=== PATIENT | male | born 1950 | race Caucasian/White ===

== ENCOUNTER 2021-07-07 16:12 | Emergency (ER) | payer OTHER, SELFPAY ==
--- NOTE | ~2021-07-07 | XR_ITS ---
[XR ribs RT 2V ] INDICATION: Right rib pain after fall TECHNIQUE: Frontal projection of the upper right ribs, frontal projection of the lower right ribs, ob lique projection of all the right ribs. FINDINGS: There are no displaced rib fractures identified. There are no soft tissue abnormality see n. The lungs are clear. Small sclerotic lesion right humeral head, likely bone island. IMPRESSION: 1:No acute displaced rib fractures. Reviewed, dictated and finalized at location A. NG DEMONSTRATOR
--- NOTE | ~2021-07-07 | XR_ITS ---
EXAMINATION: XR wrist RT min 3V DATE: 07/07/2021 17:02 INDICATION: Right wrist pain. Fall. TECHNIQUE: 4 views of right wrist were obtained. COMPARISON: None. FINDINGS: Scapholunate dissociation is noted. There is dorsal tilt of lunate, consistent with dorsal intercalated segmental instability (DISI). No fracture. 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 There is mild osteoarthritis of triscaphe joint and first carpometacarpal joint. IMPRESSION: 1. Scapholunate advanced collapse (SLAC). Reviewed, dictated and finalized at location A. E[employer]
[2021-07-07 16:28] VITALS: BP 147/86; PULSE 91; RESP 16; TEMP 36.4; O2SAT 97
--- NOTE | 2021-07-07 16:54 | ED.FALL ---
HPI - Fall General Chief Complaint: Fall Stated Complaint: fell head injury /right side/wrist pain Time Seen by Provider: 07/07/21 16:45 Source: patient, RN notes reviewed and old records reviewed Mode of arrival: ambulatory Limitations: no limitations History of Present Illness HPI Narrative: 71 year old male presents to 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 Patient has small raised hematoma to the right alfred of his forehead with some abrasions, no LOC, denies any visual disturbances. Dizziness, or nausea. Patient has pain to the right wrist area and also to the right lateral rib area under right axilla.. Patient has few abrasions to the right hand and wrist area.Patient is on daily blood thinner. Patient reports that his tetanus is up to date.Patient has been applying ice to his forehead rates his discomfort as /10 MD complaint: fall Onset (ago): hour(s) (at 1345 today) Fall from: standing Fall witnessed: yes, by bystander Place fall occurred: street Loss of consciousness: none Symptoms prior to fall: none Context: tripped/slipped Associated symptoms (after fall): denies Related Data Home Medications Medication Instructions Recorded Confirmed albuterol sulfate 90 mcg/actuation 1 inhalation INHALATION Q4-6H PRN 03/18/19 07/07/21 breath activated powder inhaler apixaban 5 mg tablet 5 mg PO BID 03/18/19 07/07/21 cholecalciferol (vitamin D3) 125 5,000 unit PO DAILY 03/18/19 07/07/21 mcg (5,000 unit) capsule diltiazem HCl 90 mg 90 mg PO BID 03/18/19 07/07/21 capsule,extended release 12 hr fluticasone furoate 200 1 inhalation INHALATION DAILY 03/18/19 07/07/21 mcg-vilanterol 25 mcg/dose inhalation powder glyburide 5 mg tablet 5 mg PO BID 03/18/19 07/07/21 hydrochlorothiazide 25 mg tablet 25 mg PO DAILY 03/18/19 07/07/21 metformin 500 mg tablet 1,000 mg PO TID tablet 03/18/19 07/07/21 metoprolol succinate 50 mg 50 mg PO BID 03/18/19 07/07/21 tablet,extended release 24 hr Allergies Allergy/AdvReac Type Severity Reaction Status Date / Time MARISELA Inhibitors Allergy Mild Verified 09/27/12 10:50 Penicillins Allergy Unknown Verified 12/07/14 13:55 Review of Systems Review of Systems: CONSTITUTIONAL: Denies fever, chills, or sweats. EYES: Denies visual changes, redness, or discharge. ENT: Denies rhinorrhea, congestion, sore throat, or otalgia. CARDIOVASCULAR: Denies chest pain, palpitations, or edema.discomfort to the lateral rib area under his axilla. RESPIRATORY: Denies cough or dyspnea. GASTROINTESTINAL: Denies abdominal pain, nausea, vomiting, or diarrhea. GENITOURINARY: Denies dysuria or hematuria. SKIN: Denies rash or itching. MUSCULOSKELETAL: Denies back pain, right wrist pain, or myalgia. NEUROLOGIC: Denies headache, numbness, or weakness.hematoma to the right forehead region PSYCHIATRIC: Denies anxiety or depression. All systems reviewed & are unremarkable except as noted in HPI and below PMFSH Past Medical History Medical History Afib COPD (chronic obstructive pulmonary disease) Diabetes Hypertension Surgical History Surgical History H/O shoulder surgery right Family History Family History Sibling Family history of malignant neoplasm Other Family history of cardiovascular disease Social History Social History Smoking status: Former smoker Smoking end date: 05/07/89 Alcohol intake: never Comments At time of signature, agree with nursing past medical, surgical, social and family history. There is no relevant family history pertinent to the presenting complaint Exam Narrative: GENERAL: Well-appearing, well-nourished,
== END 2021-07-07 17:33 | disposition home or self-care (01) ==
PROVIDERS: Emergency Provider Registered Nurse; PCP Student in an Organized Health Care Education/Training Program
DX: S09.90XA Unspecified injury of head, initial encounter (principal); W01.0XXA Fall on same level from slipping, tripping and stumbling without subsequent striking against object, initial encounter; Y99.0 Civilian activity done for income or pay; M19.031 Primary osteoarthritis, right wrist; R07.81 Pleurodynia; Z87.891 Personal history of nicotine dependence; I48.91 Unspecified atrial fibrillation; J44.9 Chronic obstructive pulmonary disease, unspecified; E11.9 Type 2 diabetes mellitus without complications; I10 Essential (primary) hypertension
CPT/HCPCS: 71100; 73110; 99214; G0463

== ENCOUNTER 2021-08-29 12:16 | Emergency (ER) | payer OTHER, SELFPAY ==
--- NOTE | ~2021-08-29 | XR_ITS ---
EXAMINATION: XR chest 2V DATE: 08/29/2021 12:45 INDICATION: Cough and congestion TECHNIQUE: PA and lateral views of the chest were obtained. COMPARISON: Chest radiograph dated 08/03/2021 FINDINGS: Mild streaky opacities at the bilateral lung bases and favor atelectasis over pneumonia. No pleural e ffusion or pneumothorax. The cardiomediastinal silhouette is normal. Mild thoracic spondylosis. IMPRESSION: 1. Mild streaky bibasilar opacities and favor atelectasis over pneumonia. Reviewed, dictated and finalized at location B.
--- NOTE | 2021-08-29 12:25 | ED.URI ---
HPI - URI/Sore Throat General Chief Complaint: Upper Respiratory Infection Stated Complaint: Cough,Congestion Time Seen by Provider: 08/29/21 12:26 Source: patient, RN notes reviewed and old records reviewed Mode of arrival: ambulatory Limitations: no limitations History of Present Illness HPI Narrative: 71-year-old male presents to the [facility] with complaints of cough and congestion for 1 week, worse over the last 2 days. Reports a nonproductive cough. States family was diagnosed with upper respiratory issues. States it was not COVID nor strep. Denies chest pain or abdominal pain. Denies fevers. Reports increased fatigue and generalized body aches. No treatment prior to arrival MD elicited complaint: cough Related Data Home Medications Medication Instructions Recorded Confirmed albuterol sulfate 90 mcg/actuation 1 inhalation INHALATION Q4-6H PRN 03/18/19 08/29/21 breath activated powder inhaler apixaban 5 mg tablet 5 mg PO BID 03/18/19 08/29/21 cholecalciferol (vitamin D3) 125 5,000 unit PO DAILY 03/18/19 08/29/21 mcg (5,000 unit) capsule diltiazem HCl 90 mg 90 mg PO BID 03/18/19 08/29/21 capsule,extended release 12 hr fluticasone furoate 200 1 inhalation INHALATION DAILY 03/18/19 08/29/21 mcg-vilanterol 25 mcg/dose inhalation powder glyburide 5 mg tablet 5 mg PO BID 03/18/19 08/29/21 hydrochlorothiazide 25 mg tablet 25 mg PO DAILY 03/18/19 08/29/21 metformin 500 mg tablet 1,000 mg PO TID tablet 03/18/19 08/29/21 metoprolol succinate 50 mg 50 mg PO BID 03/18/19 08/29/21 tablet,extended release 24 hr Allergies Allergy/AdvReac Type Severity Reaction Status Date / Time MARISELA Inhibitors Allergy Mild Other Verified 08/29/21 12:20 Penicillins Allergy Unknown Other Verified 08/29/21 12:20 Review of Systems Review of Systems: All systems reviewed & are unremarkable except as noted in HPI and below Constitutional: Constitutional: Reports as per HPI, Denies chills, Reports fatigue, Denies fever(s) and Denies headache(s) Eyes: Eyes: Reports no additional eye complaints ENT: Reports as per HPI, Denies vertigo, Denies dizziness, Denies headache(s), Denies nasal congestion and Denies sore throat Cardiovascular: Cardiovascular: Reports no additional cardiovascular complaints, Denies chest pain, Denies syncope, Denies rapid heart rate and Denies dyspnea Respiratory: Respiratory: Reports as per HPI, Reports chest congestion, Reports cough, Denies dyspnea and Denies wheezing Gastrointestinal: Gastrointestinal: Reports no additional gastrointestinal complaints, Denies abdominal pain, Denies diarrhea, Denies nausea and Denies vomiting Musculoskeletal: Musculoskeletal: Reports as per HPI, Reports myalgias and Denies numbness Integumentary/Breasts: Skin/Breast: Reports system reviewed and no additional complaints, except as docu Neurologic: Reports system reviewed and no additional complaints, except as documented, Denies vertigo, Denies dizziness, Denies syncope, Denies headache(s), Denies focal weakness and Denies numbness Psychiatric: Psychiatric: Reports no additional psychiatric complaints Allergic/Immunologic: Allergic/Immunologic: Reports no additional allergic/immunologic complaints and Denies wheezing PMFSH Past Medical History Medical History Afib Asthma COPD (chronic obstructive pulmonary disease) Diabetes Hypertension Surgical History Surgical History H/O shoulder surgery right Family History Family History Sibling Family history of malignant neoplasm Other Family history of cardiovascular disease Social History Social History Smoking status: Former smoker Smoking end date: 05/07/89 Alcohol intake: never Comments At the time of my signature, I reviewed and
[2021-08-29 12:29] VITALS: BP 136/81; PULSE 95; RESP 18; TEMP 36.2; O2SAT 95
[2021-08-29 19:32] LABS: SARS-CoV-2 RNA PCR Negative
== END 2021-08-29 13:12 | disposition home or self-care (01) ==
PROVIDERS: Emergency Provider Nurse Practitioner; PCP Student in an Organized Health Care Education/Training Program
DX: J40 Bronchitis, not specified as acute or chronic (principal); J98.11 Atelectasis; Z20.822 Contact with and (suspected) exposure to COVID-19; Z87.891 Personal history of nicotine dependence; I48.91 Unspecified atrial fibrillation; J44.9 Chronic obstructive pulmonary disease, unspecified; E11.9 Type 2 diabetes mellitus without complications; I10 Essential (primary) hypertension; Z79.84 Long term (current) use of oral hypoglycemic drugs
CPT/HCPCS: 71046; 87804; 99213; C9803; G0463; U0003; U0005

== ENCOUNTER 2024-01-19 18:58 | Emergency (ER) | payer OTHER, SELFPAY ==
[2024-01-19 19:02] VITALS: BP 167/78; PULSE 105; RESP 20; TEMP 37.9; O2SAT 96
--- NOTE | 2024-01-19 19:06 | ED.URI ---
HPI - URI/Sore Throat General Chief Complaint: Upper Respiratory Infection Stated Complaint: Cough Time Seen by Provider: 01/19/24 19:18 Source: patient, RN notes reviewed and old records reviewed Mode of arrival: ambulatory Limitations: no limitations History of Present Illness HPI Narrative: Patient presents with complaints of cough and runny nose that began yesterday. He is mildly febrile on arrival. He has had multiple sick contacts over the past couple of weeks, his did have COVID 2 weeks ago. He is not in any distress, including respiratory distress. States he has not been taking any Tylenol or ibuprofen for his symptoms yet, has been using albuterol nebulizer Related Data Home Medications Medication Instructions Recorded Confirmed albuterol sulfate 90 mcg/actuation 1 inhalation inhalation Q4-6H PRN 03/18/19 01/19/24 breath activated powder inhaler sob apixaban 5 mg tablet (Eliquis) 5 mg PO BID 03/18/19 01/19/24 cholecalciferol (vitamin D3) 125 5,000 unit PO DAILY 03/18/19 01/19/24 mcg (5,000 unit) capsule diltiazem HCl 90 mg 90 mg PO BID 03/18/19 01/19/24 capsule,extended release 12 hr fluticasone furoate 200 1 inhalation inhalation DAILY 03/18/19 01/19/24 mcg-vilanterol 25 mcg/dose inhalation powder (Breo Ellipta) glyburide 5 mg tablet 5 mg PO BID 03/18/19 01/19/24 hydrochlorothiazide 25 mg tablet 25 mg PO DAILY 03/18/19 01/19/24 metformin 500 mg tablet 1,000 mg PO TID 03/18/19 01/19/24 metoprolol succinate 50 mg 50 mg PO BID 03/18/19 01/19/24 tablet,extended release 24 hr Allergies Allergy/AdvReac Type Severity Reaction Status Date / Time MARISELA Inhibitors Allergy Mild Other Verified 01/19/24 19:11 Penicillins Allergy Unknown Other Verified 01/19/24 19:11 Review of Systems Review of Systems: All systems reviewed & are unremarkable except as noted in HPI and below Constitutional: Constitutional: Reports no additional constitutional complaints ENT: Reports system reviewed and no additional complaints, except as documented, Reports as per HPI and Reports nasal discharge Cardiovascular: Cardiovascular: Reports as per HPI and Reports no additional cardiovascular complaints Respiratory: Respiratory: Reports no additional respiratory complaints and Reports cough Gastrointestinal: Gastrointestinal: Reports no additional gastrointestinal complaints [facility] Past Medical History Medical History Afib Asthma COPD (chronic obstructive pulmonary disease) Diabetes Hypertension Surgical History Surgical History H/O shoulder surgery right Family History Family History Sibling Family history of malignant neoplasm Other Family history of cardiovascular disease Social History Social History Smoking status: Former smoker Smoking end date: 05/07/89 Alcohol intake: never Comments At the time of my signature, I reviewed and agree with the nursing past medical, surgical, social, and family history. There is no relevant family history pertinent to the patient complaint. Exam Const: General: cooperative, no acute distress, alert and awake Orientation/consciousness: oriented to person, oriented to place and oriented to time HENMT: Head: normal to inspection Mouth: Yes moist mucous membranes Throat: postnasal drainage Resp: Effort & Inspection: normal respiratory effort and able to speak in complete sentences Auscultation: clear to auscultation bilaterally, no crackles, no rales, no rhonchi and no wheezes Other: Dry hacking cough noted Cardio: Palpation: normal PMI Rate: regular rate Rhythm: regular rhythm Heart sounds: S1 normal heart sound present and S2 normal heart sound present Neuro: General: oriented to person, oriented to place and oriented to time C
[2024-01-19 19:11] LABS: EDCOVIDSCREEN Positive (Negative)
[2024-01-19 19:26] LABS: EDINFLUASCREEN Negative (Negative); EDINFLUBSCREEN Negative (Negative)
== END 2024-01-19 19:33 | disposition home or self-care (01) ==
PROVIDERS: Emergency Provider Nurse Practitioner Family; PCP Student in an Organized Health Care Education/Training Program
DX: U07.1 COVID-19 (principal); I48.91 Unspecified atrial fibrillation; J44.9 Chronic obstructive pulmonary disease, unspecified; E11.9 Type 2 diabetes mellitus without complications; Z79.84 Long term (current) use of oral hypoglycemic drugs; I10 Essential (primary) hypertension; Z79.01 Long term (current) use of anticoagulants
CPT/HCPCS: 87635; 87804; 99213; G0463

== ENCOUNTER 2024-05-06 13:48 | Emergency (ER) | payer OTHER, SELFPAY ==
--- NOTE | ~2024-05-06 | XR_ITS ---
EXAMINATION: XR chest 2V Exam Date/Time: 05/06/2024 14:10 CENTRAL OFFICE INSTALLER HISTORY: cough, sob, fever Comparison: 08/29/2021. RESULT: Lines, tubes, and devices: None. Lungs and pleura: Senescent change. Minimal bibasilar atelectasis/scar. Cardiomediastinal silhouette: Stable. Other: No acute osseous or upper abdominal finding. IMPRESSION: No acute cardiopulmonary process. Reviewed, dictated and finalized at location K. RAL OFFICE INSTALLER
--- NOTE | 2024-05-06 13:51 | ED_ITS ---
HPI - URI/Sore Throat General Chief Complaint: Upper Respiratory Infection Stated Complaint: Cough/fever Time Seen by Provider: 05/06/24 13:50 Source: patient Mode of arrival: ambulatory Limitations: no limitations History of Present Illness HPI Narrative: Jeremias is a 74-year-old male patient presenting to the clinic today with complaints of cough, fever, and shortness of breath. Former smoker over 30 years. History of asthma/COPD. States the cough is nonproductive. Fevers high as 101. checked his oxygen saturation at home and it was only 90% and this made her concerned and prompted her to bring him in to be evaluated. MD elicited complaint: fever, cough and other (Shortness of breath) Related Data Home Medications ?Medication ?Instructions ?Recorded ?Confirmed ?Last Taken ?Type albuterol sulfate 90 mcg/actuation 1 inhalation inhalation Q4-6H PRN 03/18/19 05/06/24 Unknown History breath activated powder inhaler sob apixaban 5 mg tablet (Eliquis) 5 mg PO BID 03/18/19 01/19/24 Unknown History cholecalciferol (vitamin D3) 125 5,000 unit PO DAILY 03/18/19 05/06/24 Unknown History mcg (5,000 unit) capsule diltiazem HCl 90 mg 90 mg PO BID 03/18/19 01/19/24 Unknown History capsule,extended release 12 hr fluticasone furoate 200 1 inhalation inhalation DAILY 03/18/19 01/19/24 Unknown History mcg-vilanterol 25 mcg/dose inhalation powder (Breo Ellipta) hydrochlorothiazide 25 mg tablet 25 mg PO DAILY 03/18/19 01/19/24 Unknown History metformin 500 mg tablet 1,000 mg PO TID 03/18/19 01/19/24 Unknown History metoprolol succinate 50 mg 50 mg PO BID 03/18/19 01/19/24 Unknown History tablet,extended release 24 hr diltiazem HCl 360 mg 360 mg PO Q24H 05/06/24 05/06/24 Unknown History capsule,extended release 24 hr evolocumab 140 mg/mL subcutaneous 140 mg subcut .EVERY 2 WEEKS 05/06/24 05/06/24 Unknown History syringe (Repatha Syringe) glipizide 10 mg tablet, extended 20 mg PO QAM 05/06/24 05/06/24 Unknown History release 24 hr losartan 100 mg tablet 100 mg PO .QD 05/06/24 05/06/24 Unknown History metformin 500 mg tablet,extended 1,000 mg PO BID 05/06/24 05/06/24 Unknown History release 24 hr Allergies Allergy/AdvReac Type Severity Reaction Status Date / Time MARISELA Inhibitors Allergy Mild Other Verified 05/06/24 14:00 Penicillins Allergy Unknown Other Verified 05/06/24 14:00 Review of Systems Review of Systems: Pertinent positives per HPI. Patient denies any rash, headache, visual changes, dizziness, chest pain, palpitations, nausea, vomiting, diarrhea, constipation, abdominal pain, or any urinary issues. PMFSH Past Medical History Medical History Asthma COPD (chronic obstructive pulmonary disease) Hypertension Diabetes Afib Surgical History Surgical History H/O shoulder surgery right Family History Family History Sibling Family history of malignant neoplasm Other Family history of cardiovascular disease Social History Social History Smoking status: Former smoker Smoking end date: 05/07/89 Alcohol intake: never Comments At the time of my signature, I reviewed and agree with the nursing past medical, surgical, social, and family history. There is no relevant family history pertinent to the patient complaint. Exam Narrative: General: Well-developed, well nourished, in no apparent distress Head: Normocephalic, atraumatic Eyes: Pupils equally round and reactive to light bilaterally, EOM intact, sclera and conjunctive clear, no discharge, lids normal Ears: TMs intact and clear, ear canals clear, no drainage, grossly hearing normal. Nose: Nares patent, no discharge, no inflammation, no sinus tenderness. Mouth: Oral pharynx without lesions or masses, good dentition, MMM. Neck: Supple, trachea midline, no enlargement of anterior or posterior cervical nodes, no thyroid masses or goiter palpable. Cardio: Regular rate and rhythm, s1 and s2 normal, no murmur appreciated. Resp: Lung sounds mildly coarse and diminished in the bases, no rales, wheezing or rubs Course Course Emergency Course: Portions of this record may have been created with voice recognition software. Level of Care: Express Care Visit Vital Signs Vital signs: Vital Signs Temperature 37.3 C 05/06/24 14:04 Pulse Rate 100 05/06/24 14:04 Respiratory Rate 20 05/06/24 14:04 Blood Pressure 143/75 H 05/06/24 14:04 Pulse Oximetry 95 05/06/24 14:04 Temperature 37.3 C 05/06/24 14:04 Pulse Rate 110 H 05/06/24 14:28 Respiratory Rate 22 H 05/06/24 14:28 Blood Pressure 143/75 H 05/06/24 14:04 Pulse Oximetry 95 05/06/24 14:28 Vital signs reviewed MDM - URI/Sore Throat MDM Narrative Medical decision making narrative: At the time of visit patient is resting comfortably on the exam table. Patient appears to be nontoxic. Labs: COVID and influenza testing was negative. Diagnostics: Chest x-rays negative for any acute cardiopulmonary process Medications: DuoNeb hand-held neb treatment given in the clinic today. This improved patient's lung sounds. Plan: I suspect patient has COPD exacerbation. Prescription for doxycycline, prednisone, and albuterol inhaler was sent to the pharmacy. Supportive measures were discussed with the patient and they voiced understanding discharge instructions and agrees to treatment plan. Return precautions reviewed Differential Diagnosis Differential diagnosis: Likely upper respiratory infection, otitis media, sinusitis, viral infection, bronchitis, influenza, pharyngitis and other (COVID) Lab Data Labs: Lab Results 05/06/24 Range/Units 14:30 POC Influenza A Ag Negative (Negative) POC Influenza B Ag Negative (Negative) POC SARS CoV-2 Ag Negative (Negative) Imaging Data Radiologist's impression: ITS Impressions Chest X-Ray 05/06/24 14:30 IMPRESSION: No acute cardiopulmonary process. Discharge Plan Discharge Clinical Impression: Acute exacerbation of chronic obstructive pulmonary disease Patient Disposition: Home, Self-Care Condition: Stable Instructions: Antibiotic Form, COPD (Chronic Obstructive Pulmonary Disease) (ED) Additional Instructions: Chest x-rays negative for any acute cardiopulmonary process Take prescription medications only as prescribed-doxycycline, prednisone, and albuterol inhaler Increase fluids and stay well hydrated Tylenol/motrin for pain/fever Flonase and OTC antihistamines as directed Vicks vapor rub to open sinuses Sinus rinses for congestion Cepacol spray, cough drops, throat lozenges, warm tea with honey/lemon, gargle salt water to soothe throat BRAT diet for diarrhea Clear liquids x 24 hours then advance as tolerated for nausea/vomiting Go to the ED if you develop a worsening in your condition- high fever not controlled by Tylenol or Motrin, dehydration, weakness, lethargy, shortness of breath, or chest pain. Follow up with your PCP in 3-5 days if symptoms persist. Patient Language: Luxembourger Prescriptions: New prednisone 20 mg tablet 40 mg PO DAILY 5 Days Qty: 10 0RF doxycycline monohydrate 100 mg capsule 100 mg PO BID 7 Days Qty: 14 0RF albuterol sulfate 90 mcg/actuation HFA aerosol inhaler 2 puff inhalation Q4-6H PRN (Reason: shortness of breath or wheezing) 30 Days Qty: 8.5 0RF No Action glipizide 10 mg tablet extended release 24hr 20 mg PO QAM diltiazem HCl 360 mg capsule,extended release 24hr 360 mg PO Q24H metformin 500 mg tablet extended release 24 hr 1,000 mg PO BID losartan 100 mg tablet 100 mg PO .QD Repatha Syringe 140 mg/mL syringe 140 mg SUBCUT .EVERY 2 WEEKS metoprolol succinate 50 mg tablet extended release 24 hr 50 mg PO BID diltiazem HCl 90 mg capsule,extended release 12 hr 90 mg PO BID albuterol sulfate 90 mcg/actuation aerosol powdr breath activated 1 inhalation INHALATION Q4-6H PRN (Reason: sob) Breo Ellipta 200-25 mcg/dose blister with device 1 inhalation INHALATION DAILY metformin 500 mg tablet 1,000 mg PO TID hydrochlorothiazide 25 mg tablet 25 mg PO DAILY Eliquis 5 mg tablet 5 mg PO BID cholecalciferol (vitamin D3) 5,000 unit capsule 5,000 unit PO DAILY Follow-up/Referrals: Ashly,DO Michael [Primary Care Provider] - Time of Disposition: 14:42 Quality NIHSS Nursing Documentation ED NIHSS nursing documentation: reviewed/agree
[2024-05-06 14:04] VITALS: BP 143/75; PULSE 100; RESP 20; TEMP 37.3; O2SAT 95
[2024-05-06 14:20] VITALS: PULSE 102; RESP 26; O2SAT 92
[2024-05-06] MEDS: IPRATROPIUM 0.5 MG/ALBUTEROL SULFATE 2.5 MG AMPUL.NEB 3 ML INHALATION (14:21)
[2024-05-06 14:28] VITALS: PULSE 110; RESP 22; O2SAT 95
[2024-05-06 14:37] LABS: EDCOVIDSCREEN Negative (Negative); EDINFLUASCREEN Negative (Negative); EDINFLUBSCREEN Negative (Negative)
== END 2024-05-06 14:50 | disposition home or self-care (01) ==
PROVIDERS: Emergency Provider Nurse Practitioner Family; PCP Student in an Organized Health Care Education/Training Program
DX: J44.1 Chronic obstructive pulmonary disease with (acute) exacerbation (principal); Z20.822 Contact with and (suspected) exposure to COVID-19; Z87.891 Personal history of nicotine dependence; I10 Essential (primary) hypertension; E11.9 Type 2 diabetes mellitus without complications; I48.91 Unspecified atrial fibrillation
CPT/HCPCS: 71046; 87426; 87804; 99213; G0463